=== PATIENT | female | born 1940 | race Hispanic/Latino ===

== ENCOUNTER 2019-07-27 10:49 | Inpatient (IN) | payer OTHER ==
[~2019-07-27] VITALS: Ht 157.5 cm; Wt 81.7 kg
[2019-07-27 11:19] LABS: BASOPHILS % (AUTO) 0.5 % (0.0-5.0); EOSINOPHILS % (AUTO) 0.8 % (0.0-8.0); HEMATOCRIT 38.5 % (36-48); LYMPHOCYTES % (AUTO) 32.5 % (21.0-51.0); MEAN CORPUSCULAR HEMOGLOBIN 30.6 pg (27.0-33.0); MEAN CORPUSCULAR HGB CONC 34.3 g/dL (32.0-36.0); MEAN CORPUSCULAR VOLUME 89.1 fL (79-99); MONOCYTES % (AUTO) 5.8 % (3.0-13.0); NEUTROPHILS % (AUTO) 60.1 % (40.0-77.0); PLATELET COUNT (AUTO) 210 K/uL (130-400); RED BLOOD CELL COUNT(AUTO) 4.32 MIL/uL (4.00-5.50); RED CELL DISTRIBUTION WIDTH 13.3 % (11.0-15.5); WHITE BLOOD COUNT (AUTO) 6.5 K/uL (4.8-10.8)
[2019-07-27 11:52] LABS: ALBUMIN 3.6 g/dL (3.5-5.0); BILIRUBIN,TOTAL 0.3 mg/dL (0.2-1.0); POTASSIUM 3.9 mmol/L (3.5-5.1); TOTAL PROTEIN, SERUM 8.1 g/dL (6.0-8.3)
[2019-07-27 12:50] LABS: APPEARANCE,URINE Clear (CLEAR); BILIRUBIN,URINE Negative (NEGATIVE); COLOR,URINE Yellow (YELLOW); GLUCOSE, URINE (UA) 250 mg/dL (NEGATIVE); KETONES,URINE Negative (NEGATIVE); LEUKOCYTE ESTERASE ,URINE Negative (NEGATIVE); NITRATE,URINE Negative (NEGATIVE); OCCULT BLOOD,URINE Negative (NEGATIVE); PROTEIN,URINE Negative (NEGATIVE)
[2019-07-27 13:11] LABS: BACTERIA,URINE None Seen /HPF (None Seen); RBC,URINE None Seen /HPF (0-1); SQUAMOUS EPITHELIAL CELL,UR 0-2 /HPF (0-2); WBC,URINE None Seen /HPF (0-1)
[2019-07-27] MEDS ORDERED: IOHEXOL-350 75 ML VIAL IV ONE (13:59)
[2019-07-27 16:28] VITALS: BP 131/73
[2019-07-27] MEDS ORDERED: HYDRALAZINE HCL 20 MG/ML VIAL IV PRN (16:45)
[2019-07-27] MEDS ORDERED: MAGNESIUM 2GM PREMIX 50ML 50 ML IV PRN ×2 (16:45)
[2019-07-27] MEDS ORDERED: SOD PHOSPHATE 45 MMOL/15 ML VI 15 MMOL in SODIUM CHLORIDE 0.9% 250 ML IV PRN (16:45)
[2019-07-27] MEDS ORDERED: DOCUSATE SODIUM 100 MG CAP PO PRN (16:45)
[2019-07-27] MEDS ORDERED: LACTULOSE 20 GM/30 ML UDCUP PO PRN (16:45)
[2019-07-27] MEDS ORDERED: ACETAMINOPHEN 325 MG TAB PO PRN (16:45)
[2019-07-27] MEDS ORDERED: POTASSIUM PHOS 15 mMOL+NS250ML 250 ML IV PRN (16:45)
[2019-07-27] MEDS ORDERED: POTASSIUM CHLORIDE 10% ELIXIR 20 MEQ/15 ML UDCUP PO PRN (16:45)
[2019-07-27] MEDS ORDERED: SODIUM CHLORIDE 0.9% 1000ML 1,000 ML IV SCH (16:45)
[2019-07-27] MEDS ORDERED: DEXTROSE 50%-WATER 50 ML DISP.SYRIN IV PRN (16:45)
[2019-07-27] MEDS ORDERED: GLUCAGON 1MG KIT 1 MG ML IM PRN (16:45)
[2019-07-27] MEDS ORDERED: HYDROCODONE/ACETAMINOPHEN 5/325 MG TAB PO PRN (16:45)
[2019-07-27] MEDS ORDERED: ZOLPIDEM TARTRATE 5 MG TAB PO PRN (16:45)
[2019-07-27] MEDS ORDERED: IPRATROPIUM/ALBUTEROL SULFATE 3 ML SOLUTION IH PRN (16:45)
[2019-07-27] MEDS ORDERED: ONDANSETRON HCL 4 MG/2 ML VIAL IVP PRN (16:45)
[2019-07-27] MEDS ORDERED: ALPRAZOLAM 0.5 MG TABLET PO PRN (16:45)
[2019-07-27] MEDS ORDERED: METOCLOPRAMIDE 10 MG/2 ML VIAL IVP PRN (16:45)
[2019-07-27 20:49] VITALS: BP 115/79
[2019-07-27] MEDS: INSULIN HUMULIN R 100 UNIT/ML 3ML SQ SCH (21:00)
[2019-07-27] MEDS ORDERED: MULT-1203 PO (22:51)
[2019-07-27] MEDS ORDERED: LISI1TAB51 PO (22:51)
[2019-07-27] MEDS ORDERED: OMEG-148 PO (22:51)
[2019-07-27] MEDS ORDERED: CALC600T15 PO ×2 (22:51)
[2019-07-27] MEDS ORDERED: CHOL100046 PO (22:51)
[2019-07-27] MEDS ORDERED: AEC81 PO (22:51)
[2019-07-27] MEDS ORDERED: ATOR40TA71 PO (22:51)
[2019-07-27] MEDS ORDERED: OMEP40CA13 PO (22:51)
[2019-07-28 00:17] VITALS: BP 100/56
[2019-07-28 04:16] VITALS: BP 116/68
[2019-07-28 06:20] LABS: HEMATOCRIT 42.5 % (36-48); MEAN CORPUSCULAR HEMOGLOBIN 29.6 pg (27.0-33.0); MEAN CORPUSCULAR HGB CONC 32.5 g/dL (32.0-36.0); MEAN CORPUSCULAR VOLUME 91.2 fL (79-99); PLATELET COUNT (AUTO) 219 K/uL (130-400); RED BLOOD CELL COUNT(AUTO) 4.66 MIL/uL (4.00-5.50); RED CELL DISTRIBUTION WIDTH 13.8 % (11.0-15.5); WHITE BLOOD COUNT (AUTO) 6.9 K/uL (4.8-10.8)
[2019-07-28] MEDS: INSULIN HUMULIN R 100 UNIT/ML 3ML SQ SCH ×4 (06:30→20:30)
[2019-07-28 06:31] LABS: CREATININE 0.8 mg/dL (0.5-1.5); MAGNESIUM 2.2 mg/dL (1.80-2.40); PHOSPHORUS 4.5 mg/dL (2.5-4.9)
[2019-07-28 08:00] VITALS: BP 110/63
[2019-07-28] MEDS: LISINOPRIL 20 MG TABLET PO SCH (08:12)
[2019-07-28] MEDS: HYDROCHLOROTHIAZIDE 25 MG TABLET PO SCH (08:12)
[2019-07-28] MEDS: PANTOPRAZOLE SODIUM 40 MG TABLET.DR PO SCH (08:12)
[2019-07-28] MEDS: FISH OIL 1000 MG/CAP PO SCH (08:13)
[2019-07-28] MEDS: CALCIUM CARBONATE 500 MG TABLET PO SCH ×2 (08:13→21:32)
[2019-07-28] MEDS: MULTIVITAMIN TABLET PO SCH (08:13)
[2019-07-28] MEDS: ASPIRIN 81MG TAB.CHEW PO SCH (08:13)
[2019-07-28] MEDS: ENOXAPARIN SODIUM 40 MG/0.4 ML SYRINGE SQ SCH (08:16)
[2019-07-28] MEDS: CHOLECALCIFEROL PO SCH (08:16)
[2019-07-28] MEDS ORDERED: NON-FORMULARY MEDICATION 1 EACH (Lisinopril/Hydrochlorothiazide (Lisinopril-Hctz 20-12.5 m PO SCH (09:00)
--- NOTE | 2019-07-28 09:30 | NUR ---
NEUROLOGY DR. MEDEIROS IN TO SEE PATIENT. NEW ORDERS RECEIVED AND CARRIED OUT.
[2019-07-28] MEDS ORDERED: GADODIAMIDE 10 MMOL/20 ML VIAL IV ONE (10:46)
--- NOTE | 2019-07-28 10:55 | NUR ---
TO MRI PATIENT TRANSPORTED TO MRI VIA WHEELCHAIR. SHE IS IN STABLE CONDITION.
--- NOTE | 2019-07-28 10:58 | NUR ---
DYSPHAGIA EVAL COMPLETED. -S/S OF ASPIRATION. RECOMMEND REGULAR TEXTURE, THIN LIQUIDS; PILLS WHOLE WITH LIQUIDS. Addendum: 07/28/19 at 1059 by L[facility], [facility] Amended: Links added.
--- NOTE | 2019-07-28 11:00 | NUR ---
COGNITIVE EVAL COMPLETE. COGNITIVE-LINGUISTIC ABILITIES WITHIN FUNCTIONAL LIMITS. EVALUATION: Pt AAOX3. Pt REQUESTS WANTS AND NEEDS INDEPENDENTLY. Pt INTELLIGIBLE AT 100% ACCURACY TO THE UNFAMILIAR LISTENER. Pt COMMUNICATING AT CONVERSATIONAL LEVEL WITH NO DEFICITS IDENTIFIED AT THIS TIME. Pt COMPLETED COGNITIVE-LINGUISTIC EVALUATION TARGETING: ORIENTATION, ATTENTION/CONCENTRATION, MEMORY (IMMEDIATE, SHORT-TERM AND LONG-TERM), PROBLEM SOLVING, LOGIC/REASONING/INFERENCE, THOUGHT ORGANIZATION, FUNCTIONAL MATH AND TELLING TIME. Pt ABLE TO COMPLETE TASKS WITH CORRECT AND TIMELY ANSWERS TO ALL SECTIONS. G-CODES SPOKEN LANGUAGE EXPRESSION: [id number] Addendum: 07/28/19 at 1105 by [facility] Amended: Links added.
--- NOTE | 2019-07-28 11:25 | NUR ---
BACK FROM MRI PATIENT HAS BEEN RETURNED TO HER ROOM IN STABLE CONDITION. PENDING RESULTS AND VISIT FROM PRIMARY MD.
[2019-07-28 12:00] VITALS: BP 117/70
[2019-07-28] MEDS ORDERED: CLOPIDOGREL BISULFATE 75 MG TAB PO SCH (13:30)
[2019-07-28 14:02] LABS: CHOLESTEROL 181 mg/dL (<200); HDL CHOLESTEROL 114 mg/dL (35-85); LDL DIRECT 106 mg/dL (0-99); TRIGLYCERIDES 187 mg/dL (30-200)
--- NOTE | 2019-07-28 14:25 | NUR ---
[id number] patient signed IM Letter, I faxed IM letter to [phone] and placed in chart under consent tab
--- NOTE | 2019-07-28 15:45 | NUR ---
CALL FROM DAUGHTER T/C FROM DAUGHTER NADINE DECKER, ASKING FOR MRI AND 2 DECHO RESULTS, INFORMED WILL REVIEW CHART AND CALL HER BACK.
--- NOTE | 2019-07-28 15:54 | NUR ---
CALL TO DR. MEDEIROS T/C PLACED TO DR. MEDEIROS, INFORMED THAT RESULTS FOR MRI AND 2 DECHO ARE IN, NO FURTHER ORDERS GIVEN.
[2019-07-28 16:00] VITALS: BP 125/75
--- NOTE | 2019-07-28 16:01 | NUR ---
CALL TO [facility] T/C PLACED TO [facility], INFORMED THAT DAUGHTER HAD CALLED AND WAS WANTING MRI AND 2DECHO RESULTS, SAID SHE WILL CALL DAUGHTER TOMORROW MORNING BETWEEN 7:45- 8:00 AM. DAUGHTER WAS CALLED BACK AND INFORMED HER THAT PROGRAMMER [employer] WILL CALL HER TOMORROW MORNING.
--- NOTE | 2019-07-28 16:16 | NUR ---
INITIAL SW spoke with patient. Patient states she lives with her daughter, Madyson Bhakta, [phone]. No home services or DME. Patient states she is able to complete ADL's independently but no longer drives. Patient states her children drive her where needed. PCP is Dr. Jane James. Pharmacy is [facility] on [address] [place] [address] in [place]. DCP is home. Addendum: 07/28/19 at 1627 by DARIEN SHEPARD SS Amended: Links added.
--- NOTE | 2019-07-28 17:30 | NUR ---
CARDIOLOGY DR. NORMA LOUIS WAS PAGED AT THIS TIME. DR. MEDEIROS HAS CONSULTED HIM FOR DUAL PLATELET VS. ANTICOAGULANT THERAPY FOR PFO. PENDING CALL BACK.
--- NOTE | 2019-07-28 18:45 | NUR ---
CALL BACK FROM CARDIOLOGY T/C BACK FROM CARDIOLOGY, SPOKE WITH DR.U. LOUIS, INFORMED OF PT'S DX, MRI RESULTS, ORDERS RECEIVED.
[2019-07-28 20:12] VITALS: BP 122/67
[2019-07-28] MEDS ORDERED: ATORVASTATIN CALCIUM 40 MG TABLET PO SCH (21:00)
[2019-07-29 00:20] VITALS: BP 121/59
[2019-07-29 04:16] VITALS: BP 122/55
[2019-07-29] MEDS: INSULIN HUMULIN R 100 UNIT/ML 3ML SQ SCH ×3 (07:30→16:30)
[2019-07-29 08:46] VITALS: BP 109/53
[2019-07-29] MEDS ORDERED: CLOPIDOGREL BISULFATE 75 MG TAB PO SCH (09:00)
[2019-07-29] MEDS: CHOLECALCIFEROL PO SCH (09:00)
[2019-07-29] MEDS: ASPIRIN 81MG TAB.CHEW PO SCH (09:02)
[2019-07-29] MEDS: FISH OIL 1000 MG/CAP PO SCH (09:02)
[2019-07-29] MEDS: CALCIUM CARBONATE 500 MG TABLET PO SCH (09:02)
[2019-07-29] MEDS: PANTOPRAZOLE SODIUM 40 MG TABLET.DR PO SCH (09:02)
[2019-07-29] MEDS: MULTIVITAMIN TABLET PO SCH (09:02)
[2019-07-29] MEDS: HYDROCHLOROTHIAZIDE 25 MG TABLET PO SCH (09:03)
[2019-07-29] MEDS: LISINOPRIL 20 MG TABLET PO SCH (09:03)
[2019-07-29] MEDS: ENOXAPARIN SODIUM 40 MG/0.4 ML SYRINGE SQ SCH (09:05)
[2019-07-29 11:26] VITALS: BP 123/61
[2019-07-29] MEDS ORDERED: CLOP75TA14 PO (17:00)
[2019-07-29 17:32] VITALS: BP 125/60
--- NOTE | 2019-07-29 18:45 | NUR ---
DISCHARGE PATIENT GIVEN DISCHARGE INSTRUCTIONS VIA TEACH BACK. PATIENT INSTRUCTED TO CONTINUE TAKING ASA 81MG AND PLAVIX 75MG DAILY AND FOLLOW UP WITH DR. LOUIS IN [address] MEDEIROS IN 2 WEEKS. IV'S TO LAC AND LEFT HAND DISCONTINUED, TIPS INTACT. TELE MONITOR REMOVED. PLAVIX TRANSMITTED TO [facility]. PATIENT WHEELED TO [facility] FOR DISCHARGE BY BELLE HURLEY.
== END 2019-07-29 18:50 | disposition home or self-care (01) | DRG 65 ==
LOC: EDH 10:49 → EDHIP 13:25 → OBSVTOIN 13:25 → 4AH 14:48
PROVIDERS: ADMIT Internal Medicine; ATTEND Internal Medicine
DX: I63.9 Cerebral infarction, unspecified (principal); Q21.1 Atrial septal defect; R27.0 Ataxia, unspecified; E11.65 Type 2 diabetes mellitus with hyperglycemia; I10 Essential (primary) hypertension; E78.00 Pure hypercholesterolemia, unspecified; F17.200 Nicotine dependence, unspecified, uncomplicated; Z79.82 Long term (current) use of aspirin
CPT/HCPCS: 36415; 70450; 70496; 70498; 70553; 71045; 80048; 80053; 80061; 81001; 82550; 82948; 83735; 84100; 84484; 85025; 85027; 87804; 92522; 92610; 93005; 93306; 93356; 94664; A9579; G0378; J1650; Q9967